=== PATIENT | male | born 1985 | race Caucasian/White ===

== ENCOUNTER 2021-04-03 14:24 | Emergency (ER) | payer MEDICAID, SELFPAY ==
[2021-04-03] VITALS (7 sets, daily range): BP systolic 82–161; BP diastolic 54–116; PULSE 113–132; RESP 16–25; O2SAT 86–100; BMI 29.9
--- NOTE | 2021-04-03 14:24 | CT_ITS ---
WS: [id number] CT CHEST ANGIOGRAPHY WITH REFORMATS HISTORY: cheat pain / hypoxia TECHNIQUE: Contiguous axial images are obtained through the chest during arterial injection of intrav enous contrast. Images are reconstructed to evaluate the pulmonary arteries. MIP imaging also reviewe d. All CT scans at [facility] use at least one of these dose optimization techniques: automat ed exposure control; mA and/or kV adjustment per patient size (includes targeted exams where dose is matched to clinical indication); or iterative reconstruction. CONTRAST: Omnipaque 350; 95 mL IV. DLP: 621.55 mGy-cm. COMPARISON: None available. Severe pulmonary embolic burden beginning in the distal RIGHT and LEFT main pulmonary arteries and ex tending into the upper and lower pulmonary arterial system. There is essentially occlusion of the LEF T upper and lower lobe pulmonary arterial system and near occlusion on the RIGHT. There is severe RIG HT heart strain. Marked enlargement of the pulmonary artery. Marked enlargement of the RIGHT heart chambers. Small layering RIGHT pleural effusion. No LEFT effusi on. There are a few scattered peripheral developing opacifications which are groundglass attenuation probably representing pulmonary infarcts. There is diffuse mild soft tissue anasarca throughout the chest. Tricuspid regurgitation into the he patic veins. Small amount of fluid adjacent to the spleen. Small gallstone is not excluded. No adrena l mass. No osseous abnormality. CT/CT angio chest PE protcl [id number] IMPRESSION: 1. Severe bilateral pulmonary embolic burden. Emboli begin within the distal m ain RIGHT and LEFT pulmonary arteries with essentially complete occlusions. 2. Severe RIGHT heart strain. 3. Severe RIGHT heart enlargement and RIGHT tricuspid regurgitation into the h epatic veins. 4. There are a few scattered areas of groundglass opacification throughout the lungs probably due to pulmonary infarcts. 5. Small RIGHT pleural effusion. Notified Khrsi Hernandez DO at 04/03/2021 2:53 PM.
--- NOTE | 2021-04-03 14:24 | ECG_ITS ---
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 Measurements Intervals [place] Rate: 126 P: 72 RI: 127 QRS: 114 QRSD: 106 T: 10 QT: 409 QTc: 594 Interpretive Statements SINUS TACHYCARDIA INCOMPLETE RIGHT BUNDLE BRANCH BLOCK [90+ ms QRS DURATION, TERMINAL R IN V1/V2, 40+ ms S IN I/aVL/V4/V5/V6] RIGHT VENTRICULAR HYPERTROPHY [SOME/ALL OF: PROMINENT R IN V1, LATE TRANSITION, RAD, PAXTON, SSS] MODERATE T-WAVE ABNORMALITY, CONSIDER ANTERIOR ISCHEMIA [-0.1+ mV T-WAVE IN V3/V4] MODERATE T-WAVE ABNORMALITY, CONSIDER INFERIOR ISCHEMIA [-0.1+ mV T-WAVE IN II/aVF] No previous ECG available for comparison Electronically Signed On 04-03-2021 16:09:02 CRAB CATCHER by Veronica Isbell M.D. [id number]
[2021-04-03 14:35] LABS: ABG PCO2 26.5 mmHg (35-45); Arterial Blood Gas Hematocrit 36.2 % (42-52); Base Excess ABG -1.7 mmol/L (-2.0-2.0); Blood Gas Allen Test Pos; Blood Gas Sample Type Arterial; HCO3 ABG 20.4 mmol/L (22-26); HGB O2 Sat 97.4 % (95-100); Ionized Calcium Level - ABG 1.1 mmol/L (1.1-1.4); Methemoglobin 0.4 % (0.4-1.5); Oxygen Saturation ABG 98.8; Potassium Level - ABG 4.2 mmol/L (3.5-5.0); Total Hemoglobin 11.8 g/dL (14-18)
[2021-04-03 14:36] LABS: Blood Gas Operator Identificat MONRO; Blood Gas Sample Site Radial, right; Oxygen Device NC
[2021-04-03] MEDS: iohexol 350 mg/mL 100 mL Btl IV (14:47)
--- NOTE | 2021-04-03 14:48 | ED_ITS ---
HPI - SOB/Dyspnea General: Chief Complaint: Shortness of Breath/Dyspnea Stated Complaint: SOB, LOW BP Time Seen by Provider: 04/03/21 14:24 History of Present Illness: HPI Narrative: 36-year-old male presents emergency room complaining of shortness of breath increasing over the last 3 days suddenly markedly worse today when he was going to his doctor's office for a checkup. He recently had a laparotomy postoperatively he developed a pneumonia that seemed t o have cleared and then he became more and more short of breath he suddenly became markedly short of breath while at the doctor's office he is not diaphoretic tachycardic and hypotensive and hypoxic. On arrival here he is requiring 15 L/min by nonrebreather to maintain his oxygen sats. MD elicited complaint: shortness of breath and cough Pertinent past history: pneumonia and other (Recent abdominal surgery) Onset (ago): hour(s) Context: recent illness Timing: constant Severity: severe Exacerbating factors: exertion Relieving factors: oxygen and rest Associated symptoms: Deny abdominal pain, chest congestion, chest pain, cough, diaphoresis, dizziness, extremity pain, fever(s), hemoptysis, lightheadedness, myalgias, nausea, orthopnea, palpitations, paresthesias, polydipsia, polyuria, rash, sense of impending doom, syncope or vomiting Treatment prior to arrival: oxygen Review of Systems Const: Denies: fever(s) or diaphoresis ENMT: Denies: throat pain, ear or mastoid pain, nasal discharge or nasal congestion Card: Denies: chest pain, palpitations, lightheadedness, syncope or orthopnea Resp: Denies: hemoptysis or chest congestion GI: Denies: abdominal pain, nausea or vomiting : Denies: flank pain, dysuria, urinary frequency or urinary urgency Musc: Denies: extremity pain Skin/Breast: Denies: rash or pruritus Neuro: Denies: dizziness Endo: Denies: polyuria or polydipsia Physical Exam Const: COMMON NORMALS: no acute distress GENERAL APPEARANCE: cooperative and comfortable ORIENTATION/CONSCIOUSNESS: Yes awake, Yes oriented to person, Yes oriented to place and Yes oriented to time HENMT: COMMON NORMALS: normocephalic, atraumatic and hearing grossly normal bilaterally HEAD & SCALP: normocephalic and atraumatic Neck/C-Spine: COMMON NORMALS: no JVD Resp: COMMON NORMALS: normal respiratory effort, No retractions, No use of accessory muscles and clear to auscultation bilaterally AUSCULTATION: clear to auscultation bilaterally Cardio: COMMON NORMALS: no JVD, regular rate, regular rhythm and No murmurs present (Cardio) RATE: regular rate RHYTHM: regular rhythm GI: COMMON NORMALS: Soft to palpation and No hepatosplenomegaly present AUSCULTATION: Yes normoactive bowel sounds PALPATION: Yes Soft to palpation, No Tenderness to palpation present (GI), No Guarding due to palpation present (GI) and Yes No hepatosplenomegaly present Extremity: COMMON NORMALS: normal to inspection, capillary refill normal, no clubbing, cyanosis or edema, no calf tenderness and no pedal edema Neuro: SENSORIUM/ORIENTATION: Yes oriented to person, Yes oriented to place and Yes oriented to time Skin: COMMON NORMALS: no rashes or lesions noted GENERAL SKIN EXAM: no rashes or lesions noted Procedures Intubation Time out performed: No sedative: none Laryngoscope: fiber optic video scope Assist Device Used: fiber optic device ET Tube Size: 8.5 ET Tube Uncuffed: No Tube Secured Depth (cm): 22 Tube Secured Location: teeth Tube Placement Confirmation: visualized tube passing through cords, equal breath sounds bilaterally, no breath sounds over epigastrium and confirmation by capnometry Patient Tolerated Procedure: well Intubation Complications: none Additional Comments: Patient intubated immediately after cardiorespiratory arrest. We had been preparing for intubation when patient arrested. Intubation did not require any sedation or paralytic. Course Vital Signs: Vital signs: Vital Signs Pulse Rate 116 H 04/03/21 18:20 Respiratory Rate 16 04/03/21 18:20 Blood Pressure 161/93 04/03/21 18:20 Pulse Oximetry 92 04/03/21 18:20 MDM - SOB/Dyspnea MDM Narrative: Medical decision making narrative: Patient presented hemodynamically unstable. Discussed with him and his TPA. We confirmed the date of surgery. Discussed them while there is some potential risk the benefit at this point is quite clear and I do recommend that we proceed with the TPA. and the patient recognize the risks and benefits were given the chance to discuss it and I also gave him several chances to ask questions. They wish to proceed and consent was signed. TPA was started. Prior to the TPA being completed patient began to deteriorate and became more tachypneic. He was not having any further chest pain but was maintaining his sats. Clinically he began to look much more unstable. He was expressing extreme anxiety. He was given a small dose of Ativan and continue to monitor. Patient continued to decline and we were preparing to electively intubate. This point his had left the facility and was headed to [place] we contacted her via phone. Prior to intubation patient became nonresponsive and went into cardiac arrest patient was intubated without the need for any sedation or paralytics. COVID was started. ROSC achieved on 3 separate occasions and then patient deteriorated again. Finally we were able to achieve ROSC and sustained and improving vital signs. had returned at this point. She was at the bedside we discussed risks and benefits of transfer. Patient is very unstable and prognosis is poor at this point initially vitals were not stable enough to allow for transfer over time patient's vitals did improve he was on norepinephrine and epinephrine drips at very high doses. Vital signs improved enough that we felt he was stable enough to transfer via air ambulance. Discussed risks and benefits again with the she wishes to proceed. We also consulted hospitalist and commercial lines assistant luncheonette operator. Patient transferred while still on 2 IV pressors at high doses. Vital signs were remaining relatively stable. He was beginning to show signs of spontaneous respirations at times as well. He was started on a low-dose Versed drip for sedation. Patient transferred via air [facility] to [facility] in hopes of performing embolectomy. Lab Data: Labs: Lab Results 04/03/21 04/03/21 04/03/21 14:23 16:17 16:17 WBC 18.5 10^3/uL H 10 ^3/uL (4.0-10.0) RBC 4.45 10^6/uL 10^6 /uL (4.1-5.3) Hgb 11.8 g/dL g/dL (11.7-16.6) Hct 42.5 % % (42.0-52.0) MCV 95.5 fl H fl (80-94) MCH 26.5 pg L pg (28.0-34.0) MCHC 27.8 g/dL L g/dL (30.0-36.0) RDW 17.2 % H % (12.1-15.1) Plt Count 321 10^3/cmm 10^3 /cmm (130-400) MPV 11.0 fL H fL (7.4-10.4) Neut % (Auto) 73.7 % % Lymph % (Auto) 21.4 % % [place] % (Auto) 3.8 % % Eos % (Auto) 0.1 % % Baso % (Auto) 0.3 % % Neut # (Auto) 13.64 10^3/uL H 1 0^3/uL (1.8-7.7) Lymph # (Auto) 4.0 10^3/uL 10^3/ uL (0.8-4.8) [place] # (Auto) 0.7 10^3/uL 10^3/ uL (0.2-0.9) Eos # (Auto) 0.0 10^3/uL 10^3/ uL (0.0-0.8) Baso # (Auto) 0.1 10^3/uL 10^3/ uL (0.0-0.1) Nucleated RBC % (a uto) 0.1 % % Nucleated RBCs # 0.0 /100WBC /100W BC Specimen Type Arterial Sample Site Radial, right ABG pH 7.50 H (7.35-7.45) ABG pCO2 26.5 mmHg L mmHg (35-45) ABG pO2 134.0 mmHg H mmHg (80.0-100.0) ABG HCO3 20.4 mmol/L L mmo l/L (22-26) ABG O2 Saturation 98.8 ABG Base Excess -1.7 mmol/L mmol/ L (-2.0-2.0) Henrique Test Pos A-a O2 Gradient Not Reportable Hematocrit 36.2 % L % (42-52) Hgb O2 Saturation 97.4 % % (95-100) Carboxyhemoglobin 1.0 %THgb %THgb (0.4-20.1) Methemoglobin 0.4 % % (0.4-1.5) Total Hemoglobin 11.8 g/dL L g/dL (14-18) Sodium 136.0 mmol/L mmol /L 130 mmol/L L mmol /L (131-143) (136-145) Potassium 4.2 mmol/L mmol/L 3.7 mmol/L mmol/L (3.5-5.0) (3.5-5.1) Glucose 178.0 mg/dL H mg/ dL 156 mg/dL H mg/dL (70-115) (65-115) Ionized Calcium 1.1 mmol/L mmol/L (1.1-1.4) O2 Delivery Device Nc O2 Liters/Min 7.0 % % Milk Route Supervisor ID [place] Chloride 93 mmol/L L mmol/ L (98-107) Carbon Dioxide 15 mmol/L L mmol/ L (22-29) Anion Gap 25.7 H (5-19) BUN 11 mg/dL mg/dL (6-20) Creatinine 1.0 mg/dL mg/dL (0.7-1.2) GFR Calculation 85.5 mL/min L mL/ min (90-130) Calculated Osmolal ity 273 mOsm/kg L mOs m/kg (285-295) Calcium 7.4 mg/dL L mg/dL (8.5-10.5) Total Bilirubin 0.6 mg/dL mg/dL (0.15-1.2) AST 35 U/L U/L (0-40) ALT 27 U/L U/L (0-41) Alkaline Phosphata se 110 IU/L IU/L (40-130) Creatine Kinase 31 U/L L U/L (39-308) Total Protein 7.6 g/dL g/dL (6.6-8.7) Albumin 3.4 g/dL L g/dL (3.5-5.2) Globulin 4.2 g/dL g/dL (1.3-4.6) Critical Care Time Critical Care Time: Total Critical Care Time: 75 Attestation: This case had a high probability of a clinically significant, sudden, or life threatening deterioration of this patient's condition which required my full and direct attention, intervention and personal management. Critical care time separate of procedures. Discharge Plan Discharge Patient Disposition: Xfer Short-Term Hosp Clinical Impression: Pulmonary embolism Condition: Stable Referrals: Juanjose Patterson [Primary Care Provider] - Coding Level of Care Code ED Guest Services Associate for Chg Fwd Exam Comprehensive
--- NOTE | 2021-04-03 14:55 | USCV_ITS ---
Ivan Allen Age: 36 Gender: M : 1985 Exam Date: 04/03/2021 15:52 Ordering Phys: Khris Hernandez DO Technologist: KIKI [place] [facility] [place] PE BP: 112 / 93 HR: 123 Rhythm: Sinus Technical Quality: Adequate MEASUREMENTS (Male / Female) Normal Values 2D ECHO LV Diastolic Diameter PLAX 2.7 cm 4.2 - 5.9 / 3.9 - 5.3 cm LV Systolic Diameter PLAX 2.3 cm LV Chamber Size 2.3 cm IVS Diastolic Thickness 1.3 cm 0.6 - 1.0 / 0.6 - 0.9 cm IVS Systolic Thickness 1.4 cm LVPW Diastolic Thickness 1.8 cm 0.6 - 1.0 / 0.6 - 0.9 cm LVPW Systolic Thickness 1.3 cm RV Chamber Size 5.9 cm LVOT Diameter 2.0 cm LV Ejection Fraction 2D Teich 34.9 % LA Diameter 2.9 cm LA Width 2.0 cm LA Height 4.2 cm RA Width 5.7 cm RA Height 5.3 cm Aorta at Sinotubular Diameter 3.2 cm M-MODE Aortic Annulus Diameter 3.3 cm LA Ao Ratio MM 1.0 MV E Point Septal Separation 0.4 cm DOPPLER AV Peak Velocity 102.0 cm/s LVOT Peak Velocity 55.0 cm/s AV Area Cont Eq vti 2.9 cm squared AV Area Cont Eq pk 1.7 cm squared MV Area PHT 11.0 cm squared Mitral E to A Ratio 1.2 MV E' Velocity 48.0 cm/s Mitral E to LV E' Septal Ratio 6.9 TR Peak Velocity 332.8 cm/s TR Peak Gradient 44.3 mmHg TR Mean Velocity 261.5 cm/s TR Mean Gradient 30.2 mmHg TR Velocity Time Integral 78.4 cm TV Peak E Velocity 81.0 cm/s Right Atrial Pressure 15.0 mmHg Pulmonary Artery Systolic Pressu 59.3 mmHg PV Peak Velocity 50.0 cm/s RV Acceleration Time 0.2 s RV Ejection Time 0.3 s RV AcT/ET 0.6 FINDINGS Left Ventricle Normal LV size Right Ventricle Dilated right ventricle with paradoxical septal motion. Right Atrium Dilated right atrium Left Atrium Appears to be normal size. Mitral Valve No gross abnormalities noted Aortic Valve No gross abnormalities noted Tricuspid Valve [id number] tricuspid valve regurgitation. Major pulmonary artery peak systolic pressure was 60 mmHg. This could be an underestimation because of the poor Doppler signals Pulmonic Valve Pulmonic valve not well visualized. Pericardium No pericardial effusion. Aorta Normal aortic annulus size. CONCLUSIONS Features of right ventricular strain/pressure overload-possibly related to pulmonary embolism Normal LV size and ejection fraction(visual) Moderately severe tricuspid regurgitation Estimated pulmonary artery peak systolic pressure of 60 mmHg, could be an underestimation because of the poor Doppler signals. No significant pericardial effusion. No previous study is available for comparison. Dr Gigi Ontiveros MD FACC (Electronically Signed) Final Date: 03 April 2021 21:18 S
[2021-04-03] MEDS: sodium chloride 0.9% 1,000 ML 999 ML IV (16:00)
[2021-04-03] MEDS: LORazepam 2 mg/mL INJ 1 mL IVP (16:02)
[2021-04-03 16:20] LABS: Basophils # 0.1 10^3/uL (0.0-0.1); Basophils % 0.3 %; Eosinophils % 0.1 %; Hematocrit 42.5 % (42.0-52.0); Hemoglobin 11.8 g/dL (11.7-16.6); Lymphocytes % 21.4 %; Mean Corpuscular HGB Conc 27.8 g/dL (30.0-36.0); Mean Corpuscular Hemoglobin 26.5 pg (28.0-34.0); Mean Corpuscular Volume 95.5 fl (80-94); Monocytes # 0.7 10^3/uL (0.2-0.9); Monocytes % 3.8 %; Neutrophils # 13.64 10^3/uL (1.8-7.7); Neutrophils % 73.7 %; Nucleated Red Blood Cells % 0.1 %; Platelet Count 321 10^3/cmm (130-400); Red Blood Count 4.45 10^6/uL (4.1-5.3); Red Cell Distribution Width 17.2 % (12.1-15.1); White Blood Count 18.5 10^3/uL (4.0-10.0)
[2021-04-03 16:42] LABS: Alanine Aminotransferase 27 U/L (0-41); Albumin Level 3.4 g/dL (3.5-5.2); Alkaline Phosphatase 110 IU/L (40-130); Anion Gap 25.7 (5-19); Aspartate Amino Transferase 35 U/L (0-40); Blood Urea Nitrogen 11 mg/dL (6-20); Calcium 7.4 mg/dL (8.5-10.5); Carbon Dioxide 15 mmol/L (22-29); Chloride 93 mmol/L (98-107); Creatine Phosphokinase 31 U/L (39-308); Globulin 4.2 g/dL (1.3-4.6); Glomerular Filtration Rate 85.5 mL/min (90-130); Glucose 156 mg/dL (65-115); Osmolality Calculated 273 mOsm/kg (285-295); Potassium 3.7 mmol/L (3.5-5.1); Sodium 130 mmol/L (136-145); Total Bilirubin 0.6 mg/dL (0.15-1.2); Total Protein 7.6 g/dL (6.6-8.7)
[2021-04-03] MEDS: EPINEPHrine 2.5 MG in sodium chloride 0.9% 250 ML 181.8 MG IV ×4 (16:50→19:19)
[2021-04-03] MEDS: midazolam 1 mg/mL INJ 2 mL 2 MG (17:16)
[2021-04-03] MEDS: artificial tears Op Oint 3.5 gm 1 APPLIC EYE-BOTH (18:30)
--- NOTE | 2021-04-03 18:34 | ECG_ITS ---
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 Measurements Intervals [place] Rate: 65 P: -90 NV: 109 QRS: 95 QRSD: 141 T: -72 QT: 370 QTc: 387 Interpretive Statements JUNCTIONAL RHYTHM RIGHT BUNDLE BRANCH BLOCK [120+ ms QRS DURATION, UPRIGHT V1, 40+ ms S IN I/aVL/V4/V5/V6].MODERATE T-WAVE ABNORMALITY, CONSIDER LATERAL ISCHEMIA [-0.1+ mV T-WAVE INI/aVL/V5/V6].MODERATE T-WAVE ABNORMALITY, CONSIDER INFERIOR ISCHEMIA [-0.1+ mV T-WAVE IN II/aVF] INTERPRETATION BASED ON A DEFAULT AGE OF 40 YEARS Compared to ECG 04/03/2021 14:56:31 Junctional rhythm now present.Right bundle-branch block now present Sinus tachycardia no longer present.Incomplete right bundle-branch block no longer present.Right ventricular hypertrophy no longer present Atrial abnormality no longer present.T-wave abnormality still present Possible ischemia still present Electronically Signed On 04-04-2021 21:51:44 INBOUND TELEMARKETER by Gigi Ontiveros M.D. [id number]
--- NOTE | 2021-04-03 19:32 | PC.NURSE ---
witnessed cardiac arrest at 1620, CPR started. Epi given at 1620,1623,1629,1632,1639,1641,1644,1647,1653,1700 Bicab given at 1640,1641,1654 calcium 200mg given at 1655 Dopamine 10mg given at 1638 dextrose given at 1703 See Cardiopulmonary Arrest Flow sheet for additional details
--- NOTE | 2021-04-04 06:50 | PC.NURSE ---
In regards to previous orders for Etomidate and Succinylcholine entered by this RN, these medications were never administered d/t to patient coding.
== END 2021-04-03 19:00 | disposition short-term general hospital (02) ==
PROVIDERS: Emergency Provider Family Medicine; PCP Family Medicine
DX: I26.99 Other pulmonary embolism without acute cor pulmonale (principal)
CPT/HCPCS: 31500; 36600; 71275; 80051; 80053; 82330; 82550; 82805; 85025; 93005; 93306; 96365; 96366; 96375; 99285; 99291; J0171; J1265; J2060; J2250; J2310; J2997; J3490; J7030; J7050; Q9967